=== PATIENT | female | born 1975 | race Caucasian/White ===

== ENCOUNTER 2019-06-30 14:06 | Outpatient (CLI) | payer BC ==
[~2019-06-30] VITALS: Ht 160 cm; Wt 49.9 kg
[2019-06-30] MEDS ORDERED: MULT-351 PO (14:19)
[2019-06-30] MEDS ORDERED: PSEU120T17 PO (14:19)
[2019-06-30] MEDS ORDERED: FISH1CAP15 PO (14:19)
[2019-06-30] MEDS ORDERED: METO-387 PO (14:19)
[2019-06-30 14:24] VITALS: BP 118/74
[2019-06-30 15:26] LABS: BASOPHILS # (AUTO) 0.1 10^3/uL (0.0-0.1); BASOPHILS % (AUTO) 1 % (0-10); EOSINOPHILS # (AUTO) 0.3 10^3/uL (0.0-0.3); EOSINOPHILS % (AUTO) 4 % (0-10); HEMATOCRIT 42 % (35-52); HEMOGLOBIN 13.8 G/DL (11.5-16.0); LYMPHOCYTES # (AUTO) 2.4 X 10^3 (1.0-4.0); LYMPHOCYTES % (AUTO) 28 % (12-44); MEAN CORPUSCULAR HEMOGLOBIN 32 PG (25-34); MEAN CORPUSCULAR HGB CONC 33 G/DL (32-36); MEAN CORPUSCULAR VOLUME 96 FL (80-99); MONOCYTES # (AUTO) 0.9 X 10^3 (0.0-1.0); MONOCYTES % (AUTO) 10 % (0-12); NEUTROPHILS # (AUTO) 4.9 X 10^3 (1.8-7.8); NEUTROPHILS % (AUTO) 57 % (42-75); PLATELET COUNT 126 10^3/uL (130-400); RED CELL DISTRIBUTION WIDTH 14.9 % (10.0-14.5); WHITE BLOOD COUNT 8.6 10^3/uL (4.3-11.0)
== END 2019-06-30 15:00 | disposition home or self-care (01) ==
LOC: PREOP 14:06
PROVIDERS: ATTEND Obstetrics & Gynecology
DX: Z01.818 Encounter for other preprocedural examination (principal); D25.9 Leiomyoma of uterus, unspecified; N92.0 Excessive and frequent menstruation with regular cycle
CPT/HCPCS: 36415; 85025; 86850; 86900; 86901; 87081

== ENCOUNTER 2019-07-06 10:01 | Day surgery (SDC) | payer BC ==
[~2019-07-06] VITALS: Ht 160 cm; Wt 49.9 kg
[2019-07-06] VITALS (11 sets, daily range): BP systolic 108–133; BP diastolic 70–86
[~2019-07-06 10:01] MED LIST: FISH1CAP15 PO; METO-387 PO; MULT-351 PO; PSEU120T17 PO
[2019-07-06] MEDS ORDERED: TRANEXAMIC ACID INJECTION 1,000 MG in NS (IVPB) 100 ML IV ONE (10:15)
[2019-07-06] MEDS ORDERED: metroNIDAZOLE 500MG/100ML IVPB 100 ML IV ONE (10:15)
[2019-07-06] MEDS ORDERED: ceFAZolin INJECTION 1,000 MG in WATER (STERILE) FOR INJECTION 10 ML IV ONE (10:15)
[2019-07-06 10:45] LABS: BASOPHILS % (AUTO) 1 % (0-10); EOSINOPHILS # (AUTO) 0.3 10^3/uL (0.0-0.3); EOSINOPHILS % (AUTO) 3 % (0-10); HEMATOCRIT 42 % (35-52); HEMOGLOBIN 13.9 G/DL (11.5-16.0); LYMPHOCYTES # (AUTO) 1.8 X 10^3 (1.0-4.0); LYMPHOCYTES % (AUTO) 20 % (12-44); MEAN CORPUSCULAR HEMOGLOBIN 32 PG (25-34); MEAN CORPUSCULAR HGB CONC 33 G/DL (32-36); MEAN CORPUSCULAR VOLUME 97 FL (80-99); MONOCYTES # (AUTO) 0.8 X 10^3 (0.0-1.0); MONOCYTES % (AUTO) 9 % (0-12); NEUTROPHILS # (AUTO) 5.9 X 10^3 (1.8-7.8); NEUTROPHILS % (AUTO) 67 % (42-75); PLATELET COUNT 121 10^3/uL (130-400); RED CELL DISTRIBUTION WIDTH 14.8 % (10.0-14.5); WHITE BLOOD COUNT 8.8 10^3/uL (4.3-11.0)
[2019-07-06] MEDS: LACTATED RINGERS 1,000 ML IV PRN ×3 (10:50→14:28)
[2019-07-06] MEDS ORDERED: GABAPENTIN 300 MG (NEURONTIN) CAP PO SCH (11:00)
[2019-07-06] MEDS ORDERED: BUP/EPI 0.25% 1:200,000 (MARCAINE) 10 ML VIAL IJ ONE (11:00)
--- NOTE | 2019-07-06 11:01 | Progress Note-Pre Operative ---
Pre-Operative Progress Note H&P Reviewed The H&P was reviewed, patient examined and no changes noted. Date Seen by Provider: Jul 06, 2019 Time Seen by Provider: 11:00 Date H&P Reviewed: Jul 06, 2019 Time H&P Reviewed: 11:00 Pre-Operative Diagnosis: menorrhagia, uterine fibroid, platelet dysfunction, thickened endometrium KAR CISSE DO Jul 06, 2019 11:01
[2019-07-06] MEDS ORDERED: fentaNYL INJECTION 100 MCG/2 ML AMP ONE ×2 (11:03→14:51)
[2019-07-06] MEDS ORDERED: LIDOCAINE PF 2% 5 ML (XYLOCAINE) VIAL ONE (11:03)
[2019-07-06] MEDS ORDERED: proPOfol 200 MG/20 ML (DIPRIVAN) VIAL IV ONE (11:03)
[2019-07-06] MEDS ORDERED: ONDANSETRON 4 MG/2 ML (SDV) Z0FRAN ONE (11:03)
[2019-07-06] MEDS ORDERED: DEXAMETHASONE 10 MG/ML (DECADRON) 1 ML VIAL ONE (11:03)
[2019-07-06] MEDS ORDERED: ROCURONIUM 10 MG/ML 5 ML SYRINGE IV ONE ×2 (11:03→13:53)
[2019-07-06] MEDS ORDERED: MIDAZOLAM 2 MG/2 ML (VERSED) VIAL ONE (11:04)
[2019-07-06] MEDS ORDERED: GABAPENTIN 600 MG (NEURONTIN) TAB ONE (11:47)
[2019-07-06] MEDS ORDERED: SEVOFLURANE (ULTANE) 15 ML INHAL SOLN ONE ×5 (12:07→15:00)
[2019-07-06] MEDS ORDERED: NEOSTIGMINE 3 MG/3 ML VIAL ONE (14:04)
[2019-07-06] MEDS ORDERED: GLYCOPYRROLATE 0.2 MG/ML (ROBINUL) 2 ML VIAL ONE (14:04)
[2019-07-06] MEDS ORDERED: HYDROmorphone 2 MG/ML VIAL (DILAUDID) IV ONE (15:00)
[2019-07-06] MEDS ORDERED: PROMETHAZINE INJ 25 MG/ML (PHENERGAN) AMP IVP ONE (15:00)
[2019-07-06] MEDS ORDERED: ONDANSETRON 4 MG/2 ML (SDV) Z0FRAN IVP PRN (15:00)
[2019-07-06] MEDS ORDERED: fentaNYL INJECTION 100 MCG/2 ML AMP IVP ONE (15:00)
[2019-07-06] MEDS ORDERED: morphine INJ 10 MG/ML 1ML (SYR OR VIAL) IVP ONE (15:00)
[2019-07-06] MEDS ORDERED: MEPERIDINE (DEMEROL) INJ 50 MG/ML IVP ONE (15:00)
[2019-07-06] MEDS ORDERED: MAGNESIUM CITRATE 300 ML BTL PO ONE (15:15)
[2019-07-06] MEDS ORDERED: ONDANSETRON 4 MG/2 ML (SDV) Z0FRAN IV PRN (15:15)
[2019-07-06] MEDS ORDERED: MILK OF MAGNESIA 400 MG/5 ML 30 ML UDC PO PRN (15:15)
[2019-07-06] MEDS ORDERED: HYDROmorphone 2 MG/ML VIAL (DILAUDID) ONE (15:21)
--- NOTE | 2019-07-06 15:21 | Operative Report ---
Operative Report Date of Procedure/Surgery Jul 06, 2019 Surgeon (s) KAR CISSE DO Post-Operative Diagnosis Uterine fibroids, uterus 455 grams Procedure Performed RaTH, bilateral salpingectomy, myomectomy > 250 grams Description of Procedure Anesthesia Type: General Estimated blood loss (mL): 100 Specimen(s) collected/removed uterus and tubes, fibroids Findings of the Procedure enlarge rotated uterus, bultiple fibroids 455 grams Allergies and Home Medications Allergies Coded Allergies: No Known Drug Allergies (Unverified , 06/30/19) Home Medications Fish Oil/Dha/Epa 1 Each Capsule, 2 EACH PO DAILY, (Reported) Metoprolol Succinate 25 Mg Tab.er.24h, 12.5 MG PO DAILY, (Reported) Multivitamin 1 Each Tablet, 2 EACH PO DAILY, (Reported) Pseudoephedrine HCl 120 Mg Tablet.er, 120 MG PO BID PRN for CONGESTION, (Reported) KAR CISSE DO Jul 06, 2019 15:20
[2019-07-06] MEDS: LACTATED RINGERS 1,000 ML IV SCH ×2 (15:33→18:38)
--- NOTE | 2019-07-06 15:50 | NUR ---
DORI PYLE TRANSFERRED TO ROOM 305 VIA BED FROM [facility] BY WILLY AUSTIN AFTER A ROBOTIC ASSISTED TOTAL HYSTERECTOMY AND BILATERAL SALPINGECTOMY TODAY BY DR. CISSE. DORI PYLE introduced to surroundings, call light, bed controls, phone, TV, temperature control, lights, meal times, smoking policy, visitor policy, side rail policy, bathrooms and showers. Patient Rights given to patient in the handbook.
--- NOTE | 2019-07-06 16:00 | NUR ---
PT VERY AGITATED AND REQUESTING THIS RN TO LEAVE HER ALONE "RIGHT NOW". C/O NAUSEA. SPOUSE AT BEDSIDE. ABD SOFT. LAP SITES INTACT X3 (OVER 4 INCISIONS). PERSAUD PATENT TO DD WITH CLEAR MAGDALENA URINE. CALF SCDS ON BILATERALLY. REFUSING ICE TO INCISIONS AND ARRIVED WITH WARM BLANKET TO ABDOMEN.
--- NOTE | 2019-07-06 16:15 | NUR ---
IV PLACED ON PUMP WITH NEW TUBING. SITE CLEAR.
--- NOTE | 2019-07-06 16:24 | NUR ---
ZOFRAN 4 MG IVP FOR C/O NAUSEA.
[2019-07-06] MEDS: HYDROmorphone 2 MG/ML VIAL (DILAUDID) IVP PRN ×3 (16:50→21:11)
--- NOTE | 2019-07-06 16:50 | NUR ---
DILAUDID 0.25 MG IVP FOR C/O ABD PAIN. C/O PAIN UNDER RIGHT RIBCAGE WITH INSPIRATION. REASSURANCE GIVEN. BREATH SOUNDS EQUAL AND AUDIBLE IN ALL LUNG GOLDMAN BILATERALLY.
--- NOTE | 2019-07-06 17:47 | NUR ---
DR. CISSE NOTIFIED OF PT'S REQUEST TO HAVE PERSAUD REMOVED. ORDER TO REMOVE.
[2019-07-06] MEDS: ACETAMINOPHEN 500 MG TAB (TYLENOL) PO SCH (18:02)
--- NOTE | 2019-07-06 18:02 | NUR ---
OXYIR 5 MG P.O. AND TYLENOL 1000 MG P.O. FOR C/O PAIN RATED 5/10.
--- NOTE | 2019-07-06 18:05 | NUR ---
PERSAUD D/C'ED PER PT REQUEST. 150 CC CLEAR MAGDALENA URINE IN BAG. PERICARE WITH PAD/UNDERWEAR APPLIED.
--- NOTE | 2019-07-06 18:35 | NUR ---
EYES CLOSED WHEN ENTERED ROOM. STATES PAIN DECREASED WITH PAIN MEDS.
--- NOTE | 2019-07-06 19:10 | NUR ---
SPOUSE PLACED LIGHT ON REQUESTING MORE IV PAIN MEDS. INFORMED WILL TELL HER NEW NURSE REPORT IS BEING GIVEN. STATES UNDERSTANDING.
--- NOTE | 2019-07-06 19:25 | NUR ---
PT REFUSED INCENTIVE SPIROMETRY BY RT.
[2019-07-07 00:30] VITALS: BP 138/82
[2019-07-07] MEDS: HYDROmorphone 2 MG/ML VIAL (DILAUDID) IVP PRN (00:40)
[2019-07-07] MEDS: ACETAMINOPHEN 500 MG TAB (TYLENOL) PO SCH ×2 (01:57→08:25)
--- NOTE | 2019-07-07 02:00 | NUR ---
Pt requesting pain meds after going to the br. Pt states pain is in her side. Describing gas pain. Discussed narcotic effects on gas pain. Recommended walking in hallways and delaying pain meds. Tylenol given.
--- NOTE | 2019-07-07 02:50 | NUR ---
Pt requesting pain meds. Oxy IR given.
--- NOTE | 2019-07-07 03:00 | NUR ---
Pt requesting sprite for nausea. sprite given.
[2019-07-07 05:40] LABS: BASOPHILS % (AUTO) 0 % (0-10); EOSINOPHILS % (AUTO) 0 % (0-10); HEMATOCRIT 37 % (35-52); HEMOGLOBIN 12.2 G/DL (11.5-16.0); LYMPHOCYTES # (AUTO) 1.2 X 10^3 (1.0-4.0); LYMPHOCYTES % (AUTO) 7 % (12-44); MEAN CORPUSCULAR HEMOGLOBIN 32 PG (25-34); MEAN CORPUSCULAR HGB CONC 33 G/DL (32-36); MEAN CORPUSCULAR VOLUME 96 FL (80-99); MONOCYTES # (AUTO) 1.5 X 10^3 (0.0-1.0); MONOCYTES % (AUTO) 9 % (0-12); NEUTROPHILS # (AUTO) 15.1 X 10^3 (1.8-7.8); NEUTROPHILS % (AUTO) 85 % (42-75); PLATELET COUNT 104 10^3/uL (130-400); RED CELL DISTRIBUTION WIDTH 14.2 % (10.0-14.5); WHITE BLOOD COUNT 17.8 10^3/uL (4.3-11.0)
[2019-07-07 06:10] VITALS: BP 103/66
--- NOTE | 2019-07-07 07:48 | Anesthesia-General Post-Op ---
General Patient Condition Mental Status/LOC: Same as Preop Cardiovascular: Satisfactory Nausea/Vomiting: Absent Respiratory: Satisfactory Pain: Controlled Complications: Absent Post Op Complications Complications None Follow Up Care/Instructions Patient Instructions None needed. Anesthesia/Patient Condition Patient Condition Patient is doing well, no complaints, stable vital signs, no apparent adverse anesthesia problems. No complications reported per nursing. ARNULFO CALLES CRNA Jul 07, 2019 07:48
[2019-07-07 08:00] VITALS: BP 124/73
--- NOTE | 2019-07-07 08:00 | NUR ---
A.M. ASSESSMENT COMPLETED. VSS. PT VOIDING WELL. OUT TO AMBULATE WITH THIS RN. PT C/O GAS PAIN. ENCOURAGED AMBULATION. MOVING VERY WELL.
[2019-07-07] MEDS ORDERED: ACET-77 PO (08:38)
[2019-07-07] MEDS ORDERED: OXC5T PO (08:38)
[2019-07-07] MEDS ORDERED: GABA-488 PO (08:38)
[2019-07-07] MEDS ORDERED: MAGN400O7 PO (08:38)
--- NOTE | 2019-07-07 08:46 | Discharge Inst-Women's Service ---
Discharge Inst-Women's Serv Depart Medication/Instructions New, Converted or Re-Newed RX: Other (prescription transmitted and printed) Instructions no lifting over 25 lbs. Ambulate frequently to prevent blood clots (DVT/PE) Ambulation will improve the abdominal pain and gas pain Incentive spirometry every hour 10 times daily to prevent pneumonia Final Diagnosis uterine fibroids menorrhagia platelet disorder Problems Reviewed?: Yes Consults/Follow Up Additional Follow Up: Yes (1-2 weeks with Jelena/[facility]on; 10-12 weeks for pelvic exam with Devon) Activity Activity: Activity as Tolerated Driving Instructions: No Driving for 1 Week NO SMOKING: NO SMOKING Nothing Inside Vagina: No Douching, No [place] (12 weeks until vaginal cuff is cleared), No Tampons Diet Discharge Diet: No Restrictions Symptoms to Report to : Bleeding Excessive, Eyesight Changes, Pain Increased, Fever Over 101 Degrees F, Vaginal Bleeding Increase, Cramps in Feet or Legs, Vaginal Discharge Foul For Any Problems or Questions: Contact Your Physician Skin/Wound Care Infection Signs and Symptoms: Increased Redness, Foul Odor of Wound, Increased Drainage, Skin Itchy or Has a Rash, Increased Swelling, Temperature Above 101 F Operative Area Clean and Dry: Keep Incision Clean/Dry (keep incision covered for 3 days. May remove at 3 days or, if soiled or wet, then remove and replace) Stitches/Maritza/Dermabond: Dermabond Bathing Instructions: Shower (no baths/swimming/hot tubs (soaking) until cleared) KAR CISSE DO Jul 07, 2019 08:44
[2019-07-07] MEDS ORDERED: GABAPENTIN 300 MG (NEURONTIN) CAP PO SCH ×2 (09:00→11:00)
--- NOTE | 2019-07-07 09:00 | NUR ---
DR. CISSE HERE TO SEE PT. DISCHARGE ORDER RECEIVED.
--- NOTE | 2019-07-07 09:15 | NUR ---
SALINE LOCK D/C'ED AND SITE CLEAR.
--- NOTE | 2019-07-07 09:35 | NUR ---
DISCHARGE INSTRUCTIONS REVIEWED WITH COPY TO PT. STATES UNDERSTANDING OF ALL INSTRUCTIONS AND NEED TO F/U SCHEDULED AND NEEDED.
[2019-07-07 09:40] VITALS: BP 124/73
--- NOTE | 2019-07-07 09:40 | NUR ---
DISMISSED AMB FROM [facility] IN STABLE CONDITION TO [facility] BY SPOUSE AND MARY MILLS.
== END 2019-07-07 09:40 | disposition home or self-care (01) ==
LOC: SDC 10:01 → WS 15:53 → SDC 07-07 09:40
PROVIDERS: ATTEND Obstetrics & Gynecology
DX: D25.1 Intramural leiomyoma of uterus (principal); D25.0 Submucous leiomyoma of uterus; D25.2 Subserosal leiomyoma of uterus; R93.89 Abnormal findings on diagnostic imaging of other specified body structures; F17.210 Nicotine dependence, cigarettes, uncomplicated; N92.0 Excessive and frequent menstruation with regular cycle; E88.2 Lipomatosis, not elsewhere classified; Z82.49 Family history of ischemic heart disease and other diseases of the circulatory system; Z83.3 Family history of diabetes mellitus; Z79.899 Other long term (current) drug therapy
CPT/HCPCS: 36415; 84703; 85025; 86850; 86900; 86901; 88307